=== PATIENT | female | born 1970 | race Caucasian/White ===

== ENCOUNTER 2018-03-07 08:49 | Emergency (ER) | payer MEDICAID, OTHER ==
[~2018-03-07] VITALS: Ht 147.3 cm; Wt 63.0 kg
--- NOTE | 2018-03-07 08:59 | NUR ---
Pt ambulates to room from triage with steady gait and balance.
--- NOTE | 2018-03-07 09:05 | NUR ---
First contact with pt. LINHN. No defecits observed. No obvious deformities observed. Pt states, "My feet hurt and my ankles are swollen. It has been like this for a couple of months. I went to urgent care and she touched my feet and said I was fine." Pt denies chest pain, shortness of breath, loss of sensation in lower extremities, n/v/d, or fevers. CMS intact. Call light within reach, all safety measures in place. PT's spouse at bedside. No needs expressed at this time.
[2018-03-07] MEDS ORDERED: HYDROcodone/APAP 5/325 TABLET ONE (09:17)
--- NOTE | 2018-03-07 09:19 | NUR ---
Pt states, 09/17 pain, provided medication per [facility]. Pt appreciative.
[2018-03-07] MEDS ORDERED: HYDROcodone/APAP 5/325 TABLET PO ONE (09:30)
[2018-03-07 09:54] LABS: ALBUMIN 3.9 g/dL (3.4-5.0); ANION GAP 5 mmol/L (5-15); CALCIUM 9.3 mg/dL (8.5-10.1); CHLORIDE 111 mmol/L (98-107); CREATININE 0.78 mg/dL (0.55-1.02)
[2018-03-07 10:00] LABS: BASOPHILS # (AUTO) 0.08 x10^3/uL (0-0.1); BASOPHILS % (AUTO) 1 % (0-1); EOSINOPHILS # (AUTO) 0.18 x10^3/uL (0-0.4); EOSINOPHILS % (AUTO) 2 % (1-7); LYMPHOCYTES % (AUTO) 27 % (22-44); MD NO; MEAN CORPUSCULAR HEMOGLOBIN 31.5 pg (27.0-34.8); MEAN CORPUSCULAR HGB CONC 33.4 g/dL (32.4-35.8); MEAN CORPUSCULAR VOLUME 94.3 fL (80-100); MONOCYTES # (AUTO) 0.78 x10^3/uL (0.2-0.8); MONOCYTES % (AUTO) 8 % (2-9); NEUTROPHILS # (AUTO) 5.92 x10^3/uL (1.8-6.8); NEUTROPHILS % (AUTO) 62 % (42-75); PLATELET COUNT 229 x10^3/uL (130-400); RED BLOOD COUNT 4.49 x10^6/uL (3.82-5.3)
[2018-03-07 10:28] VITALS: BP 147/89
--- NOTE | 2018-03-07 10:45 | NUR ---
Patient given discharge instructions and they have confirmed that they understand the instructions. Patient ambulatory with steady gait. Pt left with prescription, discharge paperwork, and all personal belongings.
== END 2018-03-07 10:47 | disposition home or self-care (01) ==
LOC: ED 10:24
DX: S90.31XA Contusion of right foot, initial encounter (principal); F17.210 Nicotine dependence, cigarettes, uncomplicated; X50.1XXA Overexertion from prolonged static or awkward postures, initial encounter; Y93.89 Activity, other specified; Y92.009 Unspecified place in unspecified non-institutional (private) residence as the place of occurrence of the external cause; Y99.8 Other external cause status
CPT/HCPCS: 36415; 80048; 82040; 85025; 99284

== ENCOUNTER 2018-05-16 20:41 | Emergency (ER) | payer OTHER ==
[2018-05-16 20:55] VITALS: BP 160/100
[2018-05-16] MEDS ORDERED: LIDOCAINE-MPF 1%, 5ML ONE (21:08)
[2018-05-16] MEDS ORDERED: CEFAZOLIN 1,000 MG ONE (22:15)
[2018-05-16] MEDS ORDERED: CEFAZOLIN 1,000 MG IM ONE (22:30)
--- NOTE | 2018-05-16 22:44 | NUR ---
NO S/S OF ABX RXN NOTED. DC EDUCATION PROVIDED, PT DEMONSTRATES UNDERSTANDING. PT AMBULATED STEADILY TO DC WITH RN
== END 2018-05-16 22:46 | disposition home or self-care (01) ==
LOC: ED 22:11
DX: S62.664A Nondisplaced fracture of distal phalanx of right ring finger, initial encounter for closed fracture (principal); S61.204A Unspecified open wound of right ring finger without damage to nail, initial encounter; W22.8XXA Striking against or struck by other objects, initial encounter; Y93.89 Activity, other specified; Y92.098 Other place in other non-institutional residence as the place of occurrence of the external cause; Y99.8 Other external cause status
CPT/HCPCS: 29130; 73140; 96372; 99283; J0690